=== PATIENT | male | born 1985 | race Caucasian/White ===

== ENCOUNTER 2018-11-10 11:28 | Emergency (ER) | payer OTHER ==
[~2018-11-10] VITALS: Ht 185.4 cm; Wt 111.1 kg
[~2018-11-10 11:28] MED LIST: AMOXICILLIN 50500 M1 PO; APAP/CODEINE ELI5 M1 OR; MEDROLDOSEPACK PO; NOHOMEMEDICATIONS; NORCO 5-325 TA1 EACH PO; PHENERGAN 25 MG25 M1 PO; PRILOSEC 20 MG20 MG PO; PRILOSEC40 MG PO
[2018-11-10 11:44] LABS: ABSOLUTE NEUTROPHILS 2.6 thou/uL (1.4-8.2); BASOPHILS 0.8 % (0.0-2.0); HEMATOCRIT 44.7 % (42.0-52.0); HEMOGLOBIN 15.6 gm/dL (14.0-18.0); LYMPHOCYTES 44.8 % (24.0-44.0); MCH 30.6 pg (26.0-34.0); MCV 87.4 fL (80.0-100.0); MONOCYTES 8.3 % (1.0-8.0); PLATELET COUNT 267 thou/uL (150-400); POLYS 43.1 % (36.0-66.0); RBC 5.12 mil/uL (4.50-6.00); RDW 12.6 % (10.5-14.5); WBC 6.1 thou/uL (4.0-11.0)
[2018-11-10 11:56] LABS: ANION GAP 12 mmol/L (7-16); BUN 13 mg/dL (7-18); CALCIUM 9.3 mg/dL (8.5-10.1); CHLORIDE 103 mmol/L (98-107); CO2 23 mmol/L (21-32); CREATININE 1.2 mg/dL (0.7-1.3); GLUCOSE 127 mg/dL (74-106); POTASSIUM 3.4 mmol/L (3.5-5.1); SODIUM 138 mmol/L (136-145)
[2018-11-10 12:06] LABS: ALBUMIN 4.4 g/dL (3.4-5.0); SGOT 43 U/L (15-37); SGPT 48 U/L (30-65); TOTAL BILIRUBIN 0.6 mg/dL (<0.1-1.0); TROPONIN-I <0.06 ng/mL (<0.06)
[2018-11-10 13:40] VITALS: BP 112/68
--- NOTE | 2018-11-11 08:23 | EKG ---
[address] [address] ELECTROCARDIOGRAM REPORT Name: JEMPAMELA Sagrario Room #: DEP [facility]#: [id number] Admission: 11/10/18 Attend Phys: Discharge: 11/10/18 Date of : 89 Report #: [id number] THIS REPORT FOR: //name// [facility] ED Test Date: 2018-11-10 Test Time: 11:31:43 Pat Name: PAMELA PARISH Department: Room: Gender: M Manager Cafe[facility] 1985 Requested By: Jonny Dai Order Number: [id number] MD: Jas Smalls Measurements Intervals [place] Rate: 108 P: 36 NC: 170 QRS: 56 QRSD: 93 T: 25 QT: 333 QTc: 447 Interpretive Statements Sinus tachycardia Atrial premature complex Nonspecific ST segment abnormality Compared to ECG 03/12/2015 00:47:57 Atrial premature complex(es) now present Nonspecific change in the ST and T-wave segments Electronically Signed On 11-11-2018 8:23:26 CDT by Jas Smalls [email or web address] <ELECTRONICALLY SIGNED> By: Jas Smalls MD, [facility] 11/11/18 0823 [id number] Jas Smalls MD, [facility] /EPI
== END 2018-11-10 13:40 | disposition home or self-care (01) ==
LOC: ER 11:28
PROVIDERS: Emergency Medicine
DX: R00.2 Palpitations (principal)